=== PATIENT | male | born 1990 | race Caucasian/White ===

== ENCOUNTER 2016-04-21 15:30 | Emergency (ER) | payer SELFPAY ==
[~2016-04-21] VITALS: Ht 167.6 cm; Wt 76.0 kg
[~2016-04-21 15:30] MED LIST: Z.0.NO CURRENT MEDS
[2016-04-21 15:34] VITALS: BP 134/81; PULSE 68; RESP 17; TEMP 98.7; O2SAT 97
--- NOTE | 2016-04-21 18:01 | PD ---
HPI Chief Complaint: Eye Problems/Injury Time Seen by Provider: 17:31 Travel History International Travel<30 days: No Contact w/Intl Traveler<30days: No Traveled to known affect area: No History of Present Illness HPI The patient is a 25-year-old male who presents emergency department for floaters in the eyes. The patient states his symptoms started 2 weeks ago with floaters in the left eye. Patient didn't develop floaters in the right eye. The patient states his symptoms have progressed over the last 2 weeks, therefore, he sought evaluation in the emergency department. He denies any trauma to the eyes, denies any pain with extraocular movements, and denies any current photophobia. The patient does not wear glasses or contacts. The patient states the floaters are present bilaterally, he denies any other focal deficits, weakness, numbness, tingling, or history of MS. PFSH Past Medical History Medical History: Denies Significant Hx Diminished Hearing: No Immunizations Current: Yes Tetanus Vaccination: > 5 Years Influenza Vaccination: No Past Surgical History Surgical History: No Previous Surgery Social History Alcohol Use: Yes (daily) Tobacco Use: Yes (1 PK MONTH) Substance Use: No Allergies-Medications (Allergen,Severity, Reaction): Coded Allergies: No Known Allergies (Verified , 04/21/16) Reported Meds & Prescriptions Reported Meds & Active Scripts Active No Active Prescriptions or Reported Medications Review of Systems General / Constitutional: No: Fever Eyes: Positive: Visual changes, Other (as noted in the history of present illness), No: Diploplia, Blurred Vision, Photophobia, Redness, Foreign Body Sensation, Pain Skin: No Rash Neurologic: No: Headache, Paresthesia, Sensory Disturbance Physical Exam Narrative GENERAL: Awake, alert, pleasant 25-year-old male who appears his stated age and is in no acute respiratory distress. SKIN: Warm and dry. HEAD: Atraumatic. Normocephalic. EYES: Pupils equal and round. Pupils are 4 mm bilateral and reactive. EOMs are intact. Inversion and eversion of lids reveals no visible foreign bodies. Vision in the left eye was 20/25, right 20/70, and bilateral was 20/25. Patient is able to see fingers at a distance of 2 feet without difficulty. No visible erythema, drainage, or injection. Funduscopic examination reveals no obvious abnormalities. ENT: No nasal bleeding or discharge. Mucous membranes pink and moist. NECK: Trachea midline. No JVD. MUSCULOSKELETAL: No obvious deformities. No clubbing. No cyanosis. No edema. NEUROLOGICAL: Awake and alert. No obvious cranial nerve deficits. Motor grossly within normal limits. Normal speech. PSYCHIATRIC: Appropriate mood and affect; insight and judgment normal. Data Data Last Documented VS Vital Signs Date Time Temp Pulse Resp B/P Pulse Ox O2 Delivery O2 Flow Rate FiO2 04/21/16 15:34 98.7 68 17 134/81 97 MDM Medical Decision Making Medical Screen Exam Complete: Yes Emergency Medical Condition: Yes Medical Record Reviewed: Yes Differential Diagnosis Differential diagnosis includes retinal detachment, uveitis, iritis, conjunctivitis, multiple sclerosis, optic neuritis. Narrative Course An eye exam was performed, vision out of the left eye was 20/25, right was 20/70 , bilateral is 20/25. Funduscopic examination reveals no obvious retinal detachment. Patient was examined in a dark room. The patient is advised to follow-up with ophthalmology on an outpatient basis. Diagnosis Primary Impression: Vitreous floaters of both eyes Referrals: Maureen Rodas MD call for appointment Additional Instructions: Follow-up with ophthalmology. Return if symptoms worsen or progress. Scripts No Active Prescriptions or Reported Meds Disposition: DISCHARGE HOME Condition: Stable Main James MD Apr 21, 2016 18:00
[2016-04-21 18:15] VITALS: BP 113/66; PULSE 58; RESP 16; O2SAT 98
== END 2016-04-21 18:23 | disposition home or self-care (01) ==
LOC: PHED 15:30
DX: H43.393 Other vitreous opacities, bilateral (principal)
CPT/HCPCS: 99283